=== PATIENT | female | born 1960 | race Caucasian/White ===

== ENCOUNTER 2020-04-23 06:07 | Outpatient (REF) | payer BC, SELFPAY ==
[2020-04-23 07:19] LABS: Alanine Aminotransferase 42 U/L (0-31); Albumin Level 4.6 g/dL (3.5-5.0); Alkaline Phosphatase 89 U/L (39-117); Anion Gap 13 (12-20); Aspartate Amino Transferase 27 U/L (5-31); Blood Urea Nitrogen 12 mg/dL (9-16); Calcium 9.8 mg/dL (8.4-10.2); Carbon Dioxide 30 mmol/L (22-29); Chloride 104 mmol/L (96-108); Cholesterol 203 mg/dL; Estimated Glomerular Filt Rate > 60; Glucose Fasting 174 mg/dL (60-99); HDL Cholesterol 36 mg/dL; LDL Cholesterol Calculated 133 mg/dl; Potassium 4.6 mmol/l (3.3-5.1); Sodium 142 mmol/L (135-145); Total Protein 7.7 g/dL (6.5-8.0); Triglycerides 170 mg/dL
== END 2020-04-23 06:08 | disposition home or self-care (01) ==
LOC: HO.LAB 06:07
PROVIDERS: PCP Internal Medicine; Visit Provider Internal Medicine
DX: E11.9 Type 2 diabetes mellitus without complications (principal)
CPT/HCPCS: 80053; 80061